=== PATIENT | female | born 1945 | race Caucasian/White ===

== ENCOUNTER 2017-08-10 19:21 | Emergency (ER) | payer MEDICARE, OTHER ==
[~2017-08-10] VITALS: Ht 152.4 cm; Wt 54.4 kg
[2017-08-10] MEDS ORDERED: HYDROCODONE/APAP 5MG-325MG TAB PO ONE (22:00)
[2017-08-10 22:03] VITALS: BP 147/72
== END 2017-08-10 22:06 | disposition home or self-care (01) ==
LOC: FSED 19:21
DX: S42.292A Other displaced fracture of upper end of left humerus, initial encounter for closed fracture (principal); W22.09XA Striking against other stationary object, initial encounter; Y93.E2 Activity, laundry; Y92.008 Other place in unspecified non-institutional (private) residence as the place of occurrence of the external cause; I10 Essential (primary) hypertension; I51.9 Heart disease, unspecified; J44.9 Chronic obstructive pulmonary disease, unspecified; F32.9 Major depressive disorder, single episode, unspecified
CPT/HCPCS: 99283

== ENCOUNTER 2020-01-21 14:18 | Emergency (ER) | payer MEDICARE, OTHER ==
[~2020-01-21] VITALS: Ht 152.4 cm; Wt 55.3 kg
[2020-01-21] MEDS ORDERED: TETANUS/DIPHTHERIA TOX ADULT 0.5 ML SYR IM ONE (14:45)
[2020-01-21] MEDS ORDERED: IBUPROFEN 600 MG TAB PO ONE (14:57)
--- NOTE | 2020-01-21 14:59 | Diagnostic Imaging Report ---
Exam: Right shoulder radiographs-2 views History: Pain, fall. Comparison: None. Findings/Impression: There is a minimally displaced fracture through the right humeral surgical neck, with somewhat limited evaluation secondary to obliquity. There is possible extension into the greater tuberosity. Glenohumeral and acromioclavicular alignment is maintained. Diffuse osteopenia. Atherosclerotic calcifications of the aortic arch. Dextroconvex scoliosis of the upper thoracic spine. Signed by: Dr. Charmaine Barksdale MD on 01/21/2020 2:56 PM
[2020-01-21] MEDS ORDERED: HYDROCODONE/APAP 5MG-325MG TAB PO ONE (15:00)
--- OUTSIDE RECORDS SUMMARY | 2020-01-21 15:13 | XMS REPORT | Continuity of Care Document ---
Author Author [facility] t Organization [facility] Address [address] [place] [address] Phone Unavailable Care Team Providers Care Nursing Care Attendant Name Role Phone NONSTAFF PCP Unavailable Marcela ISRAEL Attphys Unavailable Onur SHEARER, Trino Delarosa Attphys Matthew SHEARER, Alberto Cox Attphys Problems This patient has no known problems. Allergies, Adverse Reactions, Alerts Allergy Name Allergy Type Status Severity Reaction(s) Onset Date Inacti ve Date Treating Clinician Comments Source Sulfa (Sulfonamide Antibiotics) Allergy to Substance Active Moder ate vomiting 2017-08-10 00:00:00 [facility] Medications This patient has no known medications. Procedures This patient has no known procedures. Encounters Start Date/Time End Date/Time Encounter Type Admission Type [facility] Care Department Encounter ID Source 2019-11-17 15:49:58 2019-11-17 16:19:58 Office Visit [place] Gross [facility] [id number] 2019-07-28 10:51:56 2019-07-28 11:06:56 Office Visit Brooke Castro [facility] [id number] 2019-06-28 09:49:54 2019-06-28 10:59:32 Office Visit Brooke Castro [facility] [id number] 2019-02-08 08:18:24 2019-02-08 08:48:24 Office Visit [place] Gross [facility] [id number] 2017-08-10 19:21:00 2017-08-10 19:21:00 Registered Emergency Room [facility] [id number] [facility] Results Test Description Test Time Test Comments Results Result Comments Source SHOULDER 2+VW RT - HOPD 2020-01-21 14:53:00 [facility] [address] [place] [address] Patient Name: IGNACIO HAND MR #: [id number] : 1945 Age/Sex: 74/F Req #: [id number] Adm Physician: Ordered by: PENNY ISRAEL Report #: [id number] Location: [facility] Room/Bed: Procedure: [id number] HOPD/SHOULDER 2+VW RT - HOPD Exam Date: Exam Time: REPORT STATUS: Signed Exam: Right shoulder radiographs-2 views History: Pain, fall. Comparison: None. Findings/Impression: There is a minimally displaced fracture through the right humeral surgical neck, with somewhat limited evaluation secondary to obliquity. There is possible extension into the greater tuberosity. Glenohumeral and acromioclavicular alignment is maintained. Diffuse osteopenia. Atherosclerotic calcifications of the aortic arch. Dextroconvex scoliosis of the upper thoracic spine. Signed by: Dr. Mich Skinner MD on 01/21/2020 2:56 PM Dictated By: MICH SKINNER MD 55 Transcribed By: JENIFER on 01/21/201455 COPY TO: PENNY ISRAEL
[2020-01-21] MEDS ORDERED: TETANUS/DIPHTHERIA TOX ADULT 0.5 ML SYR ONE (15:18)
[2020-01-21] MEDS ORDERED: IBUPROFEN 600 MG TAB ONE (15:18)
[2020-01-21] MEDS ORDERED: HYDROCODONE/APAP 5MG-325MG TAB ONE (15:18)
[2020-01-21] MEDS ORDERED: ULTRAM50 MG PO (15:53)
[2020-01-21] MEDS ORDERED: IBUPROFEN600 MG PO (15:53)
--- NOTE | 2020-01-21 15:54 | Emergency Department Note ---
History of Present Illnes History of Present Illness Chief Complaint: rgt shoulder pain/ multiple abrasions bilateral upper extremity abrasions History of Present Illness This is a 74 year old female . 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: No Onset (how long ago): day(s) (1) Location: rgt shoulder Quality: sharp Radiation: Reports non-radiation Severity: severe Onset quality: sudden Duration (how long): day(s) (1) Timing of current episode: constant Progression: unchanged Chronicity: new Context: Reports trauma/injury; Denies recent illness, Denies recent surgery, Denies recent immobilization, Denies recent travel, Denies new medications, Denies hx of DVT/PE, Denies non- compliance w/ medications Relieving factors: none Exacerbating factors: movement Associated symptoms: Reports denies other symptoms Treatments prior to arrival: none Past Medical/Family History Physician Review I have reviewed the patient's past medical and family history. Any updates have been documented here. Past Medical History Recent Fever: No Clinical Suspicion of Infectio: No New/Unexplained Change in Ment: No Past Medical History: Hypertension, COPD Other Medical History: depression Past Surgical History: Appendectomy, Hysterectomy Other Surgery: left collar bone surgery Social History Smoking Cessation: Never Smoker Counseling Performed: No Alcohol Use: None Any Illegal Drug Use: No Physically hurt or threatened: No Other Any Pre-Existing Lines (PICC,: No Review of Systems Review of Systems Constitutional: Reports no symptoms EENTM: Reports no symptoms Cardiovascular: Reports no symptoms Respiratory: Reports no symptoms Gastrointestinal: Reports no symptoms Genitourinary: Reports no symptoms Musculoskeletal: Reports as per HPI, Reports joint pain Integumentary: Reports no symptoms Neurological: Reports no symptoms Psychological: Reports no symptoms Endocrine: Reports no symptoms Hematological/Lymphatic: Reports no symptoms Review of other systems: All other systems negative Physical Exam Related Data Allergies: Coded Allergies: Sulfa (Sulfonamide Antibiotics) (Verified Allergy, Intermediate, vomiting, 08/10/17) Triage Vital Signs Vital Signs Date Time Temp Pulse Resp B/P (MAP) Pulse Ox O2 Delivery O2 Flow Rate FiO2 01/21/20 14:21 98.7 80 16 145/75 100 Room Air Vital signs reviewed: Yes Physical Exam CONSTITUTIONAL Constitutional: Present well-developed, Present well-nourished HENT HENT: Present normocephalic, Present atraumatic, Present oropharynx clear/moist, Present nose normal HENT L/R: Present left ext ear normal, Present right ext ear normal EYES Eyes: Reports PERRL, Reports conjunctivae normal NECK Neck: Present ROM normal PULMONARY Pulmonary: Present effort normal, Present breath sounds normal CARDIOVASCULAR Cardiovascular: Present regular rhythm, Present heart sounds normal, Present capillary refill normal, Present normal rate GASTROINTESTINAL Abdominal: Present soft, Present nontender, Present bowel sounds normal GENITOURINARY Genitourinary: Present exam deferred SKIN Skin: Present warm, Present dry MUSCULOSKELETAL Musculoskeletal: Present tenderness (rgt shoulder // decrease farom, +nvi) NEUROLOGICAL Neurological: Present alert, Present oriented x 3, Present no gross motor or sensory deficits PSYCHOLOGICAL Psychological: Present mood/affect normal, Present judgement normal Results Imaging Imaging results reviewed: Yes Impressions [place] [address] Patient Name: IGNACIO HAND MR #: [id number] : 1945 Age/Sex: 74/F Req #: [id number] Adm Physician: Ordered by: PENNY ISRAEL Report #: [id number] Location: [facility] Room/Bed: Procedure: [id number] HOPD/SHOULDER 2+VW RT - HOPD Exam Date: Exam Time: REPORT STATUS: Signed Exam: Right shoulder radiographs-2 views History: Pain, fall. Comparison: None. Findings/Impression: There is a minimally displaced fracture through the right humeral surgical neck, with somewhat limited evaluation secondary to obliquity. There is possible extension into the greater tuberosity. Glenohumeral and acromioclavicular alignment is maintained. Diffuse osteopenia. Atherosclerotic calcifications of the aortic arch. Dextroconvex scoliosis of the upper thoracic spine. Signed by: Dr. Mich Skinner MD on 01/21/2020 2:56 PM Dictated By: MICH SKINNER MD 55 Transcribed By: JENIFER on 01/21/201455 COPY TO: PENNY ISRAEL~ Assessment & Plan Medical Decision Making MDM humeral fracture Assessment & Plan Final Impression: (1) Fracture of neck of humerus Depart Disposition: HOME, SELF-CARE Last Vital Signs Date Time Temp Pulse Resp B/P (MAP) Pulse Ox O2 Delivery O2 Flow Rate FiO2 01/21/20 14:21 98.7 80 16 145/75 100 Room Air Home Meds Active Scripts Tramadol Hcl (ULTRAM) 50 Mg Tablet, 50 MG PO Q6H PRN for MODERATE PAIN (4-6), #30 TAB take after ibuprofen to control pain Prov:PENNY ISRAEL 01/21/20 Ibuprofen (IBUPROFEN) 600 Mg Tablet, 600 MG PO Q6H PRN for MODERATE PAIN (4-6), #30 TAB Prov:PENNY ISRAEL 01/21/20 Medications in the ED Tetanus/ Diphtheria Toxoids 0.5 ml ONCE ONCE IM Last administered on 01/21/20at 15:15; Admin Dose 0.5 ML; Start 01/21/20 at 14:45; Stop 01/21/20 at 14:46 Ibuprofen 600 mg ONCE ONCE PO Last administered on 01/21/20at 15:15; Admin Dose 600 MG; Start 01/21/20 at 14:57; Stop 01/21/20 at 14:58 Acetaminophen/ Hydrocodone Bitart 1 ea ONCE ONCE PO Last administered on 01/21/20at 15:15; Admin Dose 1 EA; Start 01/21/20 at 15:00; Stop 01/21/20 at 15:01 Ibuprofen 600 mg STK-MED ONCE .ROUTE ; Start 01/21/20 at 15:18; Stop 01/21/20 at 15:11; Status DC Acetaminophen/ Hydrocodone Bitart 1 ea STK-MED ONCE .ROUTE ; Start 01/21/20 at 15:18; Stop 01/21/20 at 15:12; Status DC Tetanus/ Diphtheria Toxoids 0.5 ml STK-MED ONCE .ROUTE ; Start 01/21/20 at 15:18; Stop 01/21/20 at 15:12; Status DC PENNY ISRAEL Jan 21, 2020 15:54
[2020-01-21 16:08] VITALS: BP 135/74
== END 2020-01-21 16:04 | disposition home or self-care (01) ==
LOC: FSED 14:18
DX: S42.211A Unspecified displaced fracture of surgical neck of right humerus, initial encounter for closed fracture (principal); W01.0XXA Fall on same level from slipping, tripping and stumbling without subsequent striking against object, initial encounter; Y92.008 Other place in unspecified non-institutional (private) residence as the place of occurrence of the external cause; I10 Essential (primary) hypertension; J44.9 Chronic obstructive pulmonary disease, unspecified; F32.9 Major depressive disorder, single episode, unspecified
CPT/HCPCS: 90471; 96372; 99283

== ENCOUNTER → 2020-08-13 | Outpatient (CLI) | payer MEDICARE, OTHER ==
[~2020-08-13] MED LIST: IBUPROFEN600 MG PO; ULTRAM50 MG PO
== END ==
LOC: CT 13:20
PROVIDERS: ATTEND Specialist
DX: S42.221K 2-part displaced fracture of surgical neck of right humerus, subsequent encounter for fracture with nonunion (principal); S42.321K Displaced transverse fracture of shaft of humerus, right arm, subsequent encounter for fracture with nonunion

== ENCOUNTER 2022-04-19 14:28 | Emergency (ER) | payer MEDICARE, OTHER ==
[~2022-04-19] VITALS: Ht 152.4 cm; Wt 61.4 kg
[2022-04-19] MEDS: ACETAMINOPHEN 325 MG TAB PO ONE (15:27)
[2022-04-19] MEDS ORDERED: ACETAMINOPHEN 325 MG TAB ONE (15:38)
== END 2022-04-19 16:15 | disposition home or self-care (01) ==
LOC: FSED 14:57
DX: S02.2XXA Fracture of nasal bones, initial encounter for closed fracture (principal); S51.012A Laceration without foreign body of left elbow, initial encounter; S81.812A Laceration without foreign body, left lower leg, initial encounter; W01.198A Fall on same level from slipping, tripping and stumbling with subsequent striking against other object, initial encounter; Y92.89 Other specified places as the place of occurrence of the external cause; I10 Essential (primary) hypertension; J44.9 Chronic obstructive pulmonary disease, unspecified; F32.A Depression, unspecified
CPT/HCPCS: 70450; 70486; 99283